=== PATIENT | female | born 1930 | race Caucasian/White ===

== ENCOUNTER 2016-11-22 06:23 | Day surgery (SDC) | payer OTHER ==
[~2016-11-22] VITALS: Ht 152.4 cm; Wt 41.2 kg
[~2016-11-22 06:23] MED LIST: ALTOPREV40 MG PO; ASPIR 8181 M1 PO; ESSENTIAL WOMA1 EAC1 PO; ZETIA10 MG PO
[2016-11-22 06:58] VITALS: BP 142/48
[2016-11-22 13:12] VITALS: BP 144/67
[2016-11-22 13:47] VITALS: BP 144/67
[2016-11-22 16:30] VITALS: BP 129/59
[2016-11-22 23:32] VITALS: BP 126/59
[2016-11-23 08:03] VITALS: BP 116/66
[2016-11-23 11:30] VITALS: BP 105/69
[2016-11-23] MEDS ORDERED: HYDROCODON-ACE1 EAC7 PO (12:44)
== END 2016-11-23 13:30 | disposition home or self-care (01) ==
LOC: SDC 06:23 → 2SOUTH 10:00 → ENRESERV 11:09 → SDC 12:15 → 3EAST 12:34 → SDC 14:51 → 3EAST 11-23 13:30
DX: M47.12 Other spondylosis with myelopathy, cervical region (principal); M47.22 Other spondylosis with radiculopathy, cervical region; M50.021 Cervical disc disorder at C4-C5 level with myelopathy; M50.121 Cervical disc disorder at C4-C5 level with radiculopathy; I10 Essential (primary) hypertension; Z79.82 Long term (current) use of aspirin; Z95.1 Presence of aortocoronary bypass graft
CPT/HCPCS: 72020; 76000; 86900; 86901; C1713; G0378; J0131; J0690; J1100; J2405; J2710; J3010; P9045